=== PATIENT | male | born 1985 | race Caucasian/White ===

== ENCOUNTER → 2019-05-29 07:51 | Outpatient (BNVA) | payer BC, SELFPAY | PROVIDERS: Family Provider Family Medicine; Visit Provider Nurse Practitioner Psychiatric/Mental Health | DX: F33.1 Major depressive disorder, recurrent, moderate (principal); F41.1 Generalized anxiety disorder; F90.0 Attention-deficit hyperactivity disorder, predominantly inattentive type; F41.0 Panic disorder [episodic paroxysmal anxiety]; F17.210 Nicotine dependence, cigarettes, uncomplicated | CPT/HCPCS: 99213 ==

== ENCOUNTER 2019-06-18 04:34 | Emergency (ER) | payer BC, SELFPAY ==
[2019-06-18] VITALS (9 sets, daily range): BP systolic 141–162; BP diastolic 73–123; PULSE 78–102; RESP 16–18; TEMP 37.2; O2SAT 96–100; BMI 36.8
--- NOTE | 2019-06-18 04:40 | PC.NURSE ---
Patient states he started feeling aches and pains all over today and started feeling short of breath. Patient states he has been at work and left work to come to the ED. Patient states he hasn't been around anyone sick but has been around family from [place] recently.
--- NOTE | 2019-06-18 04:41 | XR_ITS ---
WS: [id number] Portable AP upright chest, 06/18/2019 Clinical Data: sob Comparison: None. Findings: No nodules, masses or effusions are seen. The heart is normal. The pulmonary vascularity is not increased. No pneumonia or pneumothorax is seen. XR/XR chest 1V portable [id number] Impression: Negative chest.
--- NOTE | 2019-06-18 04:41 | ECG_ITS ---
Measurements Intervals [place] Rate: 80 P: 62 [place]: 152 QRS: 50 QRSD: 105 T: 55 QT: 357 QTc: 414 SINUS RHYTHM No previous ECG available for comparison Electronically Signed On 06-18-2019 10:28:56 CDT by Meaghan Valverde M.D. [email or web address]
--- NOTE | 2019-06-18 04:42 | ED_ITS ---
HPI - SOB/Dyspnea General: Chief Complaint: General Medical Stated Complaint: sob Time Seen by Provider: 06/18/19 04:35 Source: patient Limitations: no limitations History of Present Illness: HPI Narrative: 83-year-old male states he started having some shortness of breath along with body aches at work today. He denies any fevers. He denies any sore throat or cough. He denies any sick contact has had no travel no coronavirus exposure. He denies any chest pain. He denies any worsening or improving factors. He states he just does not feel quite right was concerned with the joint pain and shortness of breath. MD elicited complaint: shortness of breath Onset (ago): day(s) Timing: constant Severity: mild Exacerbating factors: nothing Relieving factors: nothing Associated symptoms: Deny abdominal pain, chest pain, fever(s), nausea or vomiting Review of Systems Const: Denies: fever, chills, body aches or change in appetite Eyes: Denies: blurry vision or eye discomfort ENMT: Denies: throat pain or dental pain Card: Denies: chest pain Resp: Reports: shortness of breath GI: Denies: abdominal pain, nausea, vomiting or diarrhea : Denies: painful urination Musc: Reports: back pain; Denies: neck pain Skin/Breast: Denies: rash Neuro: Denies: headache Psych: Denies: depression Donovan/Lymph: Denies: easy bruising All/Imm: Denies: hives [facility] ED PFSH: Medical History ADHD (attention deficit hyperactivity disorder), inattentive type Generalized anxiety disorder Major depressive disorder, recurrent, moderate Nicotine dependence, cigarettes, uncomplicated Panic disorder without agoraphobia with moderate panic attacks Social History Smoking and tobacco status: light tobacco smoker cigarettes Years cigarettes smoked: 10 [ Other cigarette details: 1 pack per week ] Quit status (tobacco): not considering quitting Second hand smoke exposure: Yes Physical Exam Const: COMMON NORMALS: no apparent distress, oriented x3 and healthy appearing HENMT: COMMON NORMALS: normocephalic and head/scalp atraumatic HEAD & SCALP: normocephalic and atraumatic Eye: COMMON NORMALS: PERRL and EOMs intact bilaterally PUPIL: Yes PERRL Neck/C-Spine: COMMON NORMALS: full ROM and supple Chest: COMMONS NORMALS: inspection of chest normal and palpation of chest normal Resp: COMMON NORMALS: normal respiratory effort, no retractions, no use of accessory muscles and clear to auscultation bilaterally AUSCULTATION: clear to auscultation bilaterally Cardio: COMMON NORMALS: regular rate, regular rhythm and no murmurs RATE: regular rate RHYTHM: regular rhythm GI: COMMON NORMALS: normal to inspection, nondistended, normoactive bowel sounds, soft to palpation, non-tender and no masses PALPATION: Yes soft Extremity: COMMON NORMALS: normal to inspection and full ROM Neuro: COMMON NORMALS: oriented x3, moves all extremities and no focal motor deficits Psych: COMMON NORMALS: mental status grossly normal, thought process normal and cooperative THOUGHT PROCESS: normal thought process Skin: COMMON NORMALS: no rashes or lesions noted and no wounds GENERAL SKIN EXAM: no rashes or lesions noted Course Vital Signs: Vital signs: Vital Signs Temperature 98.9 F 06/18/19 04:38 Pulse Rate 78 06/18/19 05:48 Respiratory Rate 16 06/18/19 05:48 Blood Pressure 148/82 06/18/19 05:48 Pulse Oximetry 99 06/18/19 05:48 MDM - SOB/Dyspnea MDM Narrative: Medical decision making narrative: Patient presents with muscle aches and slight dyspnea that is since resolved. X-ray here shows no signs of pneumonia or pneumothorax. Patient's has no signs of pulmonary embolism. Patient's been afebrile and has no signs of influenza. Patient is stable for discharge and is to follow-up with primary care doctor in 3 to 5 days return if worsening. Lab Data: Labs: Lab Results 06/18/19 06/18/19 06/18/19 Range/Units 04:44 04:58 04:58 WBC 9.1 (4.0-10.0) 10^3/ uL RBC 5.14 (4.1-5.3) 10^6/u L Hgb 14.7 (11.7-16.6) g/dL Hct 44.3 (42.0-52.0) % MCV 86.2 (80-94) fL MCH 28.6 (28.0-34.0) pg MCHC 33.2 (30.0-36.0) g/dL RDW 11.6 L (12.1-15.1) % Plt Count 333 (130-400) 10^3/c mm MPV 9.0 (7.4-10.4) fL Neut % (Auto) 67.2 % Lymph % (Auto) 19.6 % [place] % (Auto) 7.8 % Eos % (Auto) 4.5 % Baso % (Auto) 0.7 % Neut # (Auto) 6.1 (1.8-7.7) 10^3/u L Lymph # (Auto) 1.8 (0.8-4.8) 10^3/u L [place] # (Auto) 0.7 (0.2-0.9) 10^3/u L Eos # (Auto) 0.4 (0.0-0.8) 10^3/u L Baso # (Auto) 0.1 (0.0-0.1) 10^3/u L Nucleated RBC % (a uto) 0 % Nucleated RBCs # 0.0 /100WBC Sodium 139 (136-145) mmol/L Potassium 4.1 (3.5-5.1) mmol/L Chloride 100 (98-107) mmol/L Carbon Dioxide 27 (22-29) mmol/L Anion Gap 16.1 (5-19) BUN 15 (6-20) mg/dL Creatinine 1.1 (0.7-1.2) mg/dL GFR Calculation 77.6 L (90-130) mL/min Glucose 112 (65-115) mg/dL Calculated Osmolal ity 285 (285-295) mOsm/k g Calcium 10.1 (8.5-10.5) mg/dL Influenza Type A A g Negative (Negative) POC Influenza B Ag Negative (Negative) EKG Data^: EKG 1: Attestation: I personally reviewed and interpreted this EKG as follows: EKG Interpretation Date: 06/18/19 EKG interpretation time: 04:59 Interpretation: nsr hr [address] or t wave abnormalities qrs 105 qtc 394 Discharge Plan Discharge Patient Disposition: Home, Self-Care Clinical Impression: Dyspnea Qualifiers: Dyspnea type: unspecified Qualified Code(s): R06.00 - Dyspnea, unspecified Hypertension Qualifiers: Hypertension type: unspecified Qualified Code(s): I10 - Essential (primary) hypertension Condition: Stable Prescriptions: New EC-Naprosyn 500 mg tablet,delayed release (DR/EC) 500 mg PO BID PRN (Reason: pain) Qty: 20 RF: 0 amlodipine 5 mg tablet 5 mg PO DAILY Qty: 30 RF: 0 No Action sertraline [Zoloft] 100 mg tablet 100 mg PO QAM Qty: 30 RF: 4 sertraline [Zoloft] 50 mg tablet 50 mg PO QAM Qty: 30 RF: 4 oxcarbazepine [Trileptal] 300 mg tablet 450 mg PO QAM Qty: 45 RF: 4 dextroamphetamine-amphetamine [Adderall] 30 mg tablet 30 mg PO QAM 30 Days Qty: 30 RF: 0 dextroamphetamine-amphetamine [Adderall] 30 mg tablet 30 mg PO .morning 30 Days Qty: 30 RF: 0 dextroamphetamine-amphetamine [Adderall] 30 mg tablet 30 mg PO .morning 30 Days Qty: 30 RF: 0 alprazolam [Xanax] 1 mg tablet 1 mg PO QDAY PRN (Reason: anxiety) Qty: 30 RF: 3 Discharge Orders: Discharge Order (Routine); Ordered 06/18/19 Ordered By: Paty Devine Referrals: Ja Lang MD [Family Provider] - 1-3 days Discharge Diet: Advance as tolerated Discharge Activity: Resume usual activity Patient Instructions: Dyspnea (ED), Hypertension (ED) Stand Alone Forms: Work/School Release Discharge Date/Time: 06/18/19 05:50 Coding Level of Care Code ED Digital Marketing Assistant for Chg Fwd Exam Comprehensive
[2019-06-18] MEDS: sodium chloride 0.9% 1,000 ML 999 ML IV (05:00)
[2019-06-18] MEDS: acetaminophen 500 mg Tablet 1000 MG PO (05:00)
[2019-06-18 05:03] LABS: Basophils # 0.1 10^3/uL (0.0-0.1); Basophils % 0.7 %; Eosinophils # 0.4 10^3/uL (0.0-0.8); Eosinophils % 4.5 %; Hematocrit 44.3 % (42.0-52.0); Hemoglobin 14.7 g/dL (11.7-16.6); Lymphocytes # 1.8 10^3/uL (0.8-4.8); Lymphocytes % 19.6 %; Mean Corpuscular HGB Conc 33.2 g/dL (30.0-36.0); Mean Corpuscular Hemoglobin 28.6 pg (28.0-34.0); Mean Corpuscular Volume 86.2 fL (80-94); Monocytes # 0.7 10^3/uL (0.2-0.9); Monocytes % 7.8 %; Neutrophils # 6.1 10^3/uL (1.8-7.7); Neutrophils % 67.2 %; Nucleated Red Blood Cells % 0 %; Platelet Count 333 10^3/cmm (130-400); Red Blood Count 5.14 10^6/uL (4.1-5.3); Red Cell Distribution Width 11.6 % (12.1-15.1); White Blood Count 9.1 10^3/uL (4.0-10.0)
[2019-06-18] MEDS: labetalol 5 mg/mL SDV 20mL 10 MG IVP (05:04)
[2019-06-18 05:15] LABS: Influenza A by IFA Negative (Negative); Influenza B by IFA Negative (Negative)
[2019-06-18 05:18] LABS: Anion Gap 16.1 (5-19); Blood Urea Nitrogen 15 mg/dL (6-20); Calcium 10.1 mg/dL (8.5-10.5); Carbon Dioxide 27 mmol/L (22-29); Chloride 100 mmol/L (98-107); Glomerular Filtration Rate 77.6 mL/min (90-130); Glucose 112 mg/dL (65-115); Osmolality Calculated 285 mOsm/kg (285-295); Potassium 4.1 mmol/L (3.5-5.1); Sodium 139 mmol/L (136-145)
== END 2019-06-18 05:50 | disposition home or self-care (01) ==
PROVIDERS: Emergency Provider Emergency Medicine; Family Provider Family Medicine
DX: R06.00 Dyspnea, unspecified (principal); I10 Essential (primary) hypertension; F17.210 Nicotine dependence, cigarettes, uncomplicated
CPT/HCPCS: 12345; 36415; 71045; 80048; 85025; 87804; 93005; 96374; 96375; 99283; 99284; J3490; J7030

== ENCOUNTER → 2019-08-26 08:58 | Outpatient (BNVA) | payer BC, SELFPAY | PROVIDERS: Family Provider Family Medicine; Referring Provider Family Medicine; Visit Provider Specialist | DX: M25.531 Pain in right wrist (principal); M25.532 Pain in left wrist | CPT/HCPCS: 73110 ==

== ENCOUNTER → 2019-09-04 07:26 | Outpatient (BNVA) | payer BC, SELFPAY | PROVIDERS: Family Provider Family Medicine; PCP Family Medicine; Visit Provider Nurse Practitioner Psychiatric/Mental Health | DX: F33.1 Major depressive disorder, recurrent, moderate (principal); F41.1 Generalized anxiety disorder; F90.0 Attention-deficit hyperactivity disorder, predominantly inattentive type; F17.210 Nicotine dependence, cigarettes, uncomplicated; F41.0 Panic disorder [episodic paroxysmal anxiety] | CPT/HCPCS: 99213 ==

== ENCOUNTER → 2019-09-16 13:29 | Outpatient (BNVA) | payer BC, SELFPAY | PROVIDERS: Family Provider Family Medicine; PCP Family Medicine; Referring Provider Family Medicine; Visit Provider Internal Medicine Nephrology | DX: G56.03 Carpal tunnel syndrome, bilateral upper limbs (principal); G56.20 Lesion of ulnar nerve, unspecified upper limb | CPT/HCPCS: 95910 ==

== ENCOUNTER → 2019-11-27 07:35 | Outpatient (BNVA) | payer BC, SELFPAY | PROVIDERS: Family Provider Family Medicine; PCP Family Medicine; Visit Provider Nurse Practitioner Psychiatric/Mental Health | DX: F33.1 Major depressive disorder, recurrent, moderate (principal); F41.1 Generalized anxiety disorder; F90.0 Attention-deficit hyperactivity disorder, predominantly inattentive type; F41.0 Panic disorder [episodic paroxysmal anxiety]; F17.210 Nicotine dependence, cigarettes, uncomplicated | CPT/HCPCS: 99214 ==

== ENCOUNTER → 2020-01-08 07:26 | Outpatient (BNVA) | payer BC, SELFPAY | PROVIDERS: Family Provider Family Medicine; PCP Family Medicine; Visit Provider Nurse Practitioner Psychiatric/Mental Health | DX: F33.1 Major depressive disorder, recurrent, moderate (principal); F41.1 Generalized anxiety disorder; F90.0 Attention-deficit hyperactivity disorder, predominantly inattentive type; F17.290 Nicotine dependence, other tobacco product, uncomplicated; F41.0 Panic disorder [episodic paroxysmal anxiety] | CPT/HCPCS: 99213 ==

== ENCOUNTER → 2020-03-04 09:03 | Outpatient (BNVA) | payer BC, SELFPAY | PROVIDERS: Family Provider Family Medicine; PCP Family Medicine; Visit Provider Nurse Practitioner Psychiatric/Mental Health | DX: F33.1 Major depressive disorder, recurrent, moderate (principal); F41.1 Generalized anxiety disorder; F90.0 Attention-deficit hyperactivity disorder, predominantly inattentive type; F17.290 Nicotine dependence, other tobacco product, uncomplicated; F41.0 Panic disorder [episodic paroxysmal anxiety] | CPT/HCPCS: 99213 ==

== ENCOUNTER → 2020-04-29 08:00 | Outpatient (BNVA) | payer BC, SELFPAY | PROVIDERS: Family Provider Family Medicine; PCP Family Medicine; Visit Provider Nurse Practitioner Psychiatric/Mental Health | DX: F33.1 Major depressive disorder, recurrent, moderate (principal); F41.1 Generalized anxiety disorder; F90.0 Attention-deficit hyperactivity disorder, predominantly inattentive type; F17.290 Nicotine dependence, other tobacco product, uncomplicated; F41.0 Panic disorder [episodic paroxysmal anxiety] | CPT/HCPCS: 99214 ==

== ENCOUNTER → 2020-06-10 07:32 | Outpatient (BNVA) | payer BC, SELFPAY | PROVIDERS: Family Provider Family Medicine; PCP Family Medicine; Visit Provider Nurse Practitioner Psychiatric/Mental Health | DX: F33.1 Major depressive disorder, recurrent, moderate (principal); F41.1 Generalized anxiety disorder; F17.290 Nicotine dependence, other tobacco product, uncomplicated; F90.0 Attention-deficit hyperactivity disorder, predominantly inattentive type; F41.0 Panic disorder [episodic paroxysmal anxiety] | CPT/HCPCS: 99214 ==

== ENCOUNTER → 2020-10-27 08:26 | Outpatient (BNVA) | payer BC, SELFPAY | PROVIDERS: Family Provider Family Medicine; PCP Family Medicine; Visit Provider Nurse Practitioner Psychiatric/Mental Health | DX: Z79.899 Other long term (current) drug therapy (principal) | CPT/HCPCS: 36415; 80053 ==

== ENCOUNTER → 2021-10-06 14:24 | Outpatient (BNVA) | payer BC, SELFPAY | PROVIDERS: Family Provider Family Medicine; PCP Family Medicine; Visit Provider Nurse Practitioner Psychiatric/Mental Health | DX: F33.1 Major depressive disorder, recurrent, moderate (principal); Z79.899 Other long term (current) drug therapy; F41.1 Generalized anxiety disorder; F90.0 Attention-deficit hyperactivity disorder, predominantly inattentive type; F41.0 Panic disorder [episodic paroxysmal anxiety]; F17.290 Nicotine dependence, other tobacco product, uncomplicated | CPT/HCPCS: 80053 ==

== ENCOUNTER → 2021-11-23 09:44 | Outpatient (BNVA) | payer BC, SELFPAY | PROVIDERS: Family Provider Family Medicine; PCP Family Medicine; Visit Provider Student in an Organized Health Care Education/Training Program | DX: G56.23 Lesion of ulnar nerve, bilateral upper limbs (principal); G56.03 Carpal tunnel syndrome, bilateral upper limbs | CPT/HCPCS: 73110 ==

== ENCOUNTER → 2022-06-06 08:41 | Outpatient (BNVA) | payer BC, SELFPAY | PROVIDERS: Family Provider Family Medicine; PCP Family Medicine; Visit Provider Nurse Practitioner Psychiatric/Mental Health | DX: Z79.899 Other long term (current) drug therapy (principal) | CPT/HCPCS: 80053 ==

== ENCOUNTER → 2023-06-11 10:26 | Outpatient (BNVA) | payer BC, SELFPAY | PROVIDERS: Family Provider Family Medicine; PCP Family Medicine; Visit Provider Nurse Practitioner Psychiatric/Mental Health | DX: Z79.899 Other long term (current) drug therapy (principal); F33.1 Major depressive disorder, recurrent, moderate; F41.1 Generalized anxiety disorder; F90.0 Attention-deficit hyperactivity disorder, predominantly inattentive type; F41.0 Panic disorder [episodic paroxysmal anxiety]; F17.290 Nicotine dependence, other tobacco product, uncomplicated | CPT/HCPCS: 80053 ==

== ENCOUNTER → 2024-03-17 10:59 | Outpatient (BNVA) | payer BC, SELFPAY | PROVIDERS: Family Provider Family Medicine; PCP Family Medicine; Visit Provider Nurse Practitioner Psychiatric/Mental Health | DX: Z79.899 Other long term (current) drug therapy (principal) | CPT/HCPCS: 80053 ==

== ENCOUNTER → 2024-09-15 13:54 | Outpatient (BNVA) | payer BC, SELFPAY | PROVIDERS: Family Provider Family Medicine; PCP Family Medicine; Visit Provider Nurse Practitioner Psychiatric/Mental Health | DX: Z79.899 Other long term (current) drug therapy (principal) | CPT/HCPCS: 80053 ==

== ENCOUNTER 2025-03-02 17:57 | Emergency (ER) | payer BC, SELFPAY ==
[2025-03-02] VITALS (8 sets, daily range): BP systolic 140–169; BP diastolic 80–104; PULSE 63–80; RESP 18; TEMP 36.8; O2SAT 96–100
--- NOTE | 2025-03-02 18:01 | XRR_ITS ---
PROCEDURE INFORMATION: Exam: XR Chest Exam date and time: 03/02/2025 6:08 PM Age: 39 years old Clinical indication: Pain; Chest pressure; Additional info: Chest pain TECHNIQUE: Imaging protocol: Radiologic exam of the chest. Views: 1 view. COMPARISON: CR XR chest 1V portable [id number] 06/18/2019 5:32 AM FINDINGS: Lungs: Unremarkable. No consolidation. Pleural spaces: Unremarkable. No pleural effusion. No pneumothorax. Heart/Mediastinum: Heart size within normal limits for AP chest. Bones/joints: Slight right convexity thoracolumbar scoliosis. Upper abdomen: Unremarkable: XR/XR chest 1V portable [id number] IMPRESSION: No acute findings.
--- NOTE | 2025-03-02 18:03 | ECG_ITS ---
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 Measurements Intervals [place] Rate: 74 P: 46 NC: 151 QRS: 19 QRSD: 110 T: 35 QT: 354 QTc: 393 Interpretive Statements SINUS RHYTHM Compared to ECG 06/18/2019 04:59:43 No significant changes Electronically Signed On 03-04-2025 17:31:25 SECURITY TECH by Oliverio Garrido M.D. [id number]
--- NOTE | 2025-03-02 18:23 | PC.NURSE ---
family was concerned about lab work, called lab and asked to come draw blood from waiting room. notified patient and family of update.
[2025-03-02 18:48] LABS: Hematocrit 47.0 % (37-53); Hemoglobin 15.50 g/dL (11.27-16.99); Mean Corpuscular HGB Conc 33.0 g/dL (30-55); Mean Corpuscular Hemoglobin 26.9 pg (27-33); Mean Corpuscular Volume 81.6 fl (82-101); Nucleated Red Blood Cells % 0 %; Platelet Count 305 10^3/cmm (157-399); Red Blood Count 5.76 10^6/uL (3.85-5.65); White Blood Count 8.22 10^3/uL (3.29-11.43)
--- NOTE | 2025-03-02 19:01 | ECG_ITS ---
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 Measurements Intervals [place] Rate: 63 P: 48 [place]: 120 QRS: 27 QRSD: 114 T: 36 QT: 399 QTc: 410 Interpretive Statements SINUS RHYTHM POSSIBLE LATERAL MYOCARDIAL INFARCTION , OF INDETERMINATE AGE [30 ms Q WAVE IN I/aVL/V5/V6] Compared to ECG 06/18/2019 04:59:43 Myocardial infarct finding now present Electronically Signed On 03-04-2025 17:59:41 BAG LOADER by Oliverio Garrido M.D. [email or web address]
[2025-03-02 19:50] LABS: Alanine Aminotransferase 20 U/L (0-41); Albumin Level 4.7 g/dL (3.5-5.2); Alkaline Phosphatase 63 U/L (40-130); Anion Gap 16.9 (5-19); Aspartate Amino Transferase 18 U/L (0-40); Blood Urea Nitrogen 12 mg/dL (6-20); Calcium 9.4 mg/dL (8.5-10.5); Carbon Dioxide 28 mmol/L (22-29); Chloride 100 mmol/L (98-107); Globulin 2.4 g/dL (1.3-4.6); Glucose 108 mg/dL (65-115); Osmolality Calculated 290 mOsm/kg (285-295); Potassium 4.9 mmol/L (3.5-5.1); Sodium 140 mmol/L (136-145); Total Protein 7.1 g/dL (6.6-8.7)
--- NOTE | 2025-03-02 20:12 | ED_ITS ---
HPI - Chest Pain 2 General: Chief Complaint: Chest Pain Stated Complaint: CP Pressure SOB Time Seen by Provider: 03/02/25 19:31 History of Present Illness: 39-year-old male presents emergency room . He is at work today began has some what he describes as pressure in his chest. He has not isolated episode of A- fib several years ago. He initially thought this was just panic attacks seem to be worsening. Most of the symptoms are gone now like the pressure in his chest that is worse when he takes a deep breath has not had any fever sweats chills no nausea vomiting or diarrhea no upper respiratory symptoms. Not noticing thing that exacerbates or relieves besides the deep breathing. Associated symptoms: Deny abdominal pain, dyspnea or fever(s) Related Data Previous Rx's ?Medication ?Instructions ?Recorded amlodipine 5 mg tablet 5 mg PO DAILY #30 tabs 06/17 oxcarbazepine 150 mg tablet 150 mg PO BID #60 tabs 03/18 oxcarbazepine 300 mg tablet 300 mg PO BID #60 tabs 03/18 (Trileptal) dextroamphetamine-amphetamine ER 40 mg (2 x 20 mg) PO QAM 30 days 03/03/25 20 mg 24hr capsule,extend release #60 caps (Adderall XR) duloxetine 60 mg capsule,delayed 60 mg PO .2 pm #30 ca ps 03/03/25 release lorazepam 2 mg tablet 2 mg PO DAILY PRN severe 01/16 anxiety/panic attack #30 tabs Allergies Allergy/AdvReac Type Severity Reaction Status Date / Time No Known Allergies Allergy Verified 03/03/25 10:00 Review of Systems 2 Const: Denies: fever(s) or chills Card: Reports: chest pain; Denies: swelling of feet/ankles, dyspnea on exertion or orthopnea Resp: Denies: dyspnea GI: Denies: abdominal pain : Denies: dysuria, urinary frequency or urinary urgency Musc: Denies: neck pain or back pain Skin/Breast: Denies: rash PFSH ED 2 PFSH: Medical History Psychiatric care Nicotine dependence due to vaping tobacco product Panic disorder without agoraphobia with moderate panic attacks ADHD (attention deficit hyperactivity disorder), inattentive type Generalized anxiety disorder Major depressive disorder, recurrent, moderate Social History Smoking and tobacco/nicotine status: current every day tobacco/nicotine user cigarettes Years cigarettes smoked: 10 [ Other cigarette details: 1 pack per week] Quit status (tobacco/nicotine): not considering quitting Second hand smoke exposure: Yes Physical Exam 2 Const: GENERAL APPEARANCE: cooperative ORIENTATION/CONSCIOUSNESS: Yes awake, Yes oriented to person, Yes oriented to place and Yes oriented to time HENMT: COMMON NORMALS: normocephalic, atraumatic and hearing grossly normal bilaterally HEAD & SCALP: normocephalic and atraumatic Resp: COMMON NORMALS: normal respiratory effort, No retractions, No use of accessory muscles and clear to auscultation bilaterally AUSCULTATION: clear to auscultation bilaterally Cardio: COMMON NORMALS: regular rate, regular rhythm and No murmurs present (Cardio) RATE: regular rate RHYTHM: regular rhythm GI: COMMON NORMALS: Soft to palpation and No hepatosplenomegaly present A USCULTATION: Yes normoactive bowel sounds PALPATION: Yes Soft to palpation, No Tenderness to palpation present (GI), No Guarding due to palpation present (GI) and Yes No hepatosplenomegaly present Extremity: COMMON NORMALS: normal to inspection, capillary refill normal, no clubbing, cyanosis or edema, no calf tenderness and no pedal edema Neuro: SENSORIUM/ORIENTATION: Yes oriented to person, Yes oriented to place and Yes oriented to time Skin: COMMON NORMALS: no rashes or lesions noted GENERAL SKIN EXAM: no rashes or lesions noted Course 2 Vital Signs: Vital signs: Vital Signs Temperature 98.2 F 03/02/25 17:59 Pulse Rate 77 03/02/25 21:15 Respiratory Rate 18 03/02/25 17:59 Blood Pressure 162/101 03/02/25 21:15 Pulse Oximetry 98 03/02/25 21:15 Oxygen Delivery Me thod Room Air 03/02/25 21:15 MDM - Chest Pain Medical Decision Making Medical decision making Social determinants: None I reviewed the patient's medical record. I reviewed the patient's current home meds. Alternate historians: None Differential diagnosis: Atypical chest pain reflux acute coronary syndrome Lab Review: Labs reviewed as found in the chart. Troponins did not show significant delta. White count normal hemoglobin within normal range chemistries normal Imaging: Chest x-ray no acute infiltrates no cardiomegaly no effusions Assessment of risk Level of risk: Low Hospitalization considerations: Pending cardiac workup could require hospitalization Reexamination: No further chest pain or symptoms Assessment and plan: Reviewed findings with patient EKG did not show any acute changes troponins negative. Just presentation is rather atypical. Suspect this is something other than acute coronary syndrome. Continue his current medications and follow-up with his primary care doctor can use [id number] Pepcid. Patient was concerned that this may be related to anxiety attacks given his presentation description symptoms suspect this may be the case return if he has further problems. Lab Data 03/02/25 18:42 03/02/25 19:16 Radiology Impressions Chest X-Ray 03/02/25 18:01 IMPRESSION: No acute findings. Laboratory Results WBC 8.22 10^3/uL (3.29-11.43) 03/02/25 18:42 RBC 5.76 10^6/uL (3.85-5.65) H 03/02/25 18:42 Hgb 15.50 g/dL (11.27-16.99) 03/02/25 18:42 Hct 47.0 % (37-53) 03/02/25 18:42 MCV 81.6 fl (82-101) L 03/02/25 18:42 MCH 26.9 pg (27-33) L 03/02/25 18:42 MCHC 33.0 g/dL (30-55) 03/02/25 18:42 RDW 13.1 % (12.1-15.1) 03/02/25 18:42 Plt Count 305 10^3/cmm (157-399) 03/02/25 18:42 MPV 9.0 fL (7.4-10.4) 03/02/25 18:42 Neut % (Auto) 59.2 % 03/02/25 18:42 Lymph % (Auto) 19.1 % 03/02/25 18:42 Cross % (Auto) 13.4 % 03/02/25 18:42 Eos % (Auto) 7.3 % 03/02/25 18:42 Baso % (Auto) 0.9 % 03/02/25 18:42 Neut # (Auto) 4.87 10^3/uL (1.8-7.7) 03/02/25 18:42 Lymph # (Auto) 1.6 10^3/uL (0.8-4.8) 03/02/25 18:42 Cross # (Auto) 1.1 10^3/uL (0.2-0.9) H 03/02/25 18:42 Eos # (Auto) 0.6 10^3/uL (0.0-0.8) 03/02/25 18:42 Baso # (Auto) 0.1 10^3/uL (0.0-0.1) 03/02/25 18:42 Nucleated RBC % (auto) 0 % 03/02/25 18:42 Nucleated RBCs # 0.0 /100WBC 03/02/25 18:42 Sodium 140 mmol/L (136-145) 03/02/25 19:16 Potassium 4.9 mmol/L (3.5-5.1) 03/02/25 19:16 Chloride 100 mmol/L (98-107) 03/02/25 19:16 Carbon Dioxide 28 mmol/L (22-29) 03/02/25 19:16 Anion Gap 16.9 (5-19) 03/02/25 19:16 BUN 12 mg/dL (6-20) 03/02/25 19:16 Creatinine 0.8 mg/dL (0.7-1.2) 03/02/25 19:16 GFR Calculation 108.2 mL/min (90-130) 03/02/25 19:16 Glucose 108 mg/dL (65-115) 03/02/25 19:16 Calculated Osmolality 290 mOsm/kg (285-295) 03/02/25 19:16 Calcium 9.4 mg/dL (8.5-10.5) 03/02/25 19:16 Total Bilirubin 0.5 mg/dL (0.15-1.2) 03/02/25 19:16 AST 18 U/L (0-40) 03/02/25 19:16 ALT 20 U/L (0-41) 03/02/25 19:16 Alkaline Phosphatase 63 U/L (40-130) 03/02/25 19:16 Troponin T Baseline 14 ng/L (0-15) 03/02/25 19:16 Troponin T 60 Minute 12.39 ng/L (0-15) 03/02/25 20:30 Delta Troponin T -1.61 ABS# (0-10) L 03/02/25 20:30 Total Protein 7.1 g/dL (6.6-8.7) 03/02/25 19:16 Albumin 4.7 g/dL (3.5-5.2) 03/02/25 19:16 Globulin 2.4 g/dL (1.3-4.6) 03/02/25 19:16 All radiology interpretation(s) finalized by discharge EKG Data EKG 1: I personally reviewed and interpreted this EKG as follows: Interpretation: EKG 03/02/2025 1803 sinus rhythm rate of 74 ME interval 151 QTc [address] changes are noted. Compared to EKG 06/18/2019 no acute changes EKG 2: I personally reviewed and interpreted this EKG as follows: Interpretation: EKG 03/02/2025 2121 sinus rhythm no acute ST changes. Rate of 83 ME interval [address] elevation or depression. Compared to EKG done earlier same day no significant change Discharge Plan Discharge Patient Disposition: Home Clinical Impression: Atypical chest pain, Anxiety Condition: Stable Prescriptions: No Action oxcarbazepine 150 mg tablet 150 mg PO BID Qty: 60 6RF Rx Instructions: Take one tablet twice per day with 300 mg tablet, total dose 450 mg oxcarbazepine [Trileptal] 300 mg tablet 300 mg PO BID Qty: 60 6RF Rx Instructions: Take one tablet twice per day with 150 mg tablet, total dose 450 mg lorazepam 2 mg tablet 2 mg PO DAILY PRN (Reason: severe anxiety/panic attack) Qty: 30 1RF Rx Instructions: may take half to one tablet daily as needed for severe anxiety/panic attack duloxetine 60 mg capsule,delayed release(DR/EC) 60 mg PO .2 pm Qty: 30 3RF Rx Instructions: Take one capsule at 2 pm dextroamphetamine-amphetamine [Adderall XR] 20 mg capsule,extended release 24hr 40 mg PO QAM 30 Days Qty: 60 0RF Rx Instructions: Take two capsules every morning amlodipine 5 mg tablet 5 mg PO DAILY Qty: 30 0RF Discharge Orders: Discharge ED (Routine); Ordered 03/02/25 Ordered By: Colin Contreras Referrals: Ja Lang MD [Primary Care Provider, Family Practice] Discharge Diet: Usual diet Discharge Activity: Resume usual activity Patient Instructions: Chest Pain (ED), Opioid Safety, Pain Management, Patient Portal & Martha Instructions Activity Restrictions/Additional Instructions: Thank you for choosing [facility] for your healthcare needs today. It is very important that you follow up as instructed or that you return to the Emergency Department should you have concerns or if your condition changes or worsens in any way. Emergency department visits are focused on emergent conditions, in some cases you may require further evaluation on an outpatient basis. You are seen in the emergency room with complaint of chest comfort your cardiac enzymes were normal EKG did not show any acute changes. Based on your presenting symptoms suspect you may be right and associating this discomfort with a panic attack. Recommend you follow-up with your primary care doctor. (Please note that included in your discharge packet is information concerning opioid safety and pain management. This information is given to all patients were discharged from the ER regardless of their discharge diagnosis or the medicines they usually take or are prescribed.) Print Language: Telugu Coding Level of Care Code ED Word Processing Machine Operator for Chg Fwd Heart Score HEART Score Components History: Slightly Suspicous EKG: Normal Age: Less than 45 yrs Risk Factors: 1 or 2 Risk Factors Troponin: Baseline Trop <16 ng/L HEART Score RESULT HEART Score: 1
[2025-03-02 20:40] LABS: Troponin(5th) Baseline 14 ng/L (0-15)
== END 2025-03-02 21:35 | disposition home or self-care (01) ==
PROVIDERS: Emergency Provider Family Medicine; Family Provider Family Medicine; PCP Family Medicine
DX: R07.89 Other chest pain (principal); F17.210 Nicotine dependence, cigarettes, uncomplicated
CPT/HCPCS: 36415; 71045; 80053; 84484; 85025; 93005; 99285; J9999